=== PATIENT | male | born 1965 | race Caucasian/White ===

== ENCOUNTER → 2020-09-26 | Outpatient (CLI) | payer OTHER | LOC: CT 15:50 | PROVIDERS: ATTEND Family Medicine | DX: M54.2 Cervicalgia (principal); V89.2XXA Person injured in unspecified motor-vehicle accident, traffic, initial encounter | CPT/HCPCS: 72125 ==

== ENCOUNTER 2020-12-04 12:20 | Inpatient (IN) | payer OTHER ==
[~2020-12-04] VITALS: Ht 177.8 cm; Wt 75.7 kg
[2020-12-04] MEDS ORDERED: SODIUM CHLORIDE 0.9% 1000ML 1,000 ML IV SCH (13:30)
[2020-12-04 13:40] LABS: BASOPHILS # (AUTO) 0.1 (0.0-0.1); BASOPHILS % 0.5 % (0.0-1.0); HEMATOCRIT 38.9 % (38.2-49.6); LYMPHOCYTES # (AUTO) 1.4 (1.0-3.2); LYMPHOCYTES % 14.4 % (18.0-39.1); MEAN CORPUSCULAR HEMOGLOBIN 19.6 pg (28-32); MEAN CORPUSCULAR HGB CONC 30.8 g/dL (31-35); MEAN CORPUSCULAR VOLUME 63.5 fL (81-99); MONOCYTES % 10.3 % (4.4-11.3); NEUTROPHILS # (AUTO) 6.9 (2.1-6.9); NEUTROPHILS % 73.2 % (38.7-80.0); PLATELET COUNT 337 x10e3/uL (140-360); RED BLOOD COUNT 6.13 x10e6/uL (4.3-5.7); RED CELL DISTRIBUTION WIDTH 16.2 % (11.7-14.4)
[2020-12-04 14:00] LABS: ALANINE AMINOTRANSFERASE 146 IU/L (0-55); ALBUMIN 3.9 g/dL (3.5-5.0); ALBUMIN/GLOBULIN RATIO 0.9 (0.8-2.0); ALKALINE PHOSPHATASE 52 IU/L (40-150); ANION GAP 13.5 mmol/L (8-16); BLOOD UREA NITROGEN 19 mg/dL (7-26); BUN/CREATININE RATIO 18 (6-25); CALCIUM 9.4 mg/dL (8.4-10.2); CARBON DIOXIDE 25 mmol/L (22-29); CHLORIDE 99 mmol/L (98-107); CREATININE, SERUM 1.06 mg/dL (0.72-1.25); EST GLOMERULAR FILTRATION RATE > 60 ML/MIN (60-); GLUCOSE 101 mg/dL (74-118); POTASSIUM 4.5 mmol/L (3.5-5.1); SODIUM 133 mmol/L (136-145)
[2020-12-04] MEDS ORDERED: CIPROFLOXACIN500 MG (14:18)
[2020-12-04] MEDS ORDERED: CYCLOBENZAPRINE10 MG (14:18)
[2020-12-04 15:00] VITALS: BP 137/94
[2020-12-04 16:25] VITALS: BP 137/94
[2020-12-04 18:23] LABS: CLARITY,URINE SL CLOUDY (CLEAR); COLOR,URINE BROWN (YELLOW); KETONES,URINE 1+ (NEGATIVE); LEUKOCYTE ESTERASE ,URINE NEGATIVE (NEGATIVE); NITRITE,URINE NEGATIVE (NEGATIVE); PROTEIN,URINE DIPSTICK 1+ (NEGATIVE)
[2020-12-04 18:31] LABS: BACTERIA,URINE RARE /HPF; MUCUS,URINE FEW (RARE); RBC,URINE 0-5 /HPF (0-5); WBC,URINE (MAN) 0-5 /HPF (0-5)
[2020-12-04 18:51] LABS: THYROID STIMULATING HORMONE 0.36 uIU/mL (0.350-4.940)
[2020-12-04] MEDS ORDERED: ACETAMINOPHEN 325 MG TAB PO PRN (19:00)
[2020-12-04] MEDS: SODIUM CHLORIDE 0.9% 1000ML 1,000 ML IV SCH (19:40)
[2020-12-04 20:50] VITALS: BP 137/94
[2020-12-04] MEDS: IBUPROFEN 200 MG TAB PO PRN (21:21)
[2020-12-04 21:35] VITALS: BP 118/78
[2020-12-04] MEDS ORDERED: CEFTRIAXONE SOD 2 GM/100 ML ML IV SCH (23:30)
[2020-12-04] MEDS ORDERED: CEFTRIAXONE SOD 2 GM in SODIUM CHLORIDE 0.9% 100 ML IV SCH (23:30)
[2020-12-04] MEDS: CEFTRIAXONE SOD 1 GM in SODIUM CHLORIDE 0.9% 50ML 50 ML IV SCH (23:42)
[2020-12-05] VITALS (9 sets, daily range): BP systolic 93–121; BP diastolic 70–77
[2020-12-05] MEDS: SODIUM CHLORIDE 0.9% 1000ML 1,000 ML IV SCH ×3 (02:58→20:20)
[2020-12-05 06:15] LABS: BASOPHILS % 0.6 % (0.0-1.0); LYMPHOCYTES # (AUTO) 1.9 (1.0-3.2); LYMPHOCYTES % 28.1 % (18.0-39.1); MEAN CORPUSCULAR HEMOGLOBIN 19.7 pg (28-32); MEAN CORPUSCULAR HGB CONC 31.3 g/dL (31-35); MEAN CORPUSCULAR VOLUME 63.1 fL (81-99); MONOCYTES # (AUTO) 1.1 (0.2-0.8); MONOCYTES % 15.8 % (4.4-11.3); NEUTROPHILS # (AUTO) 3.6 (2.1-6.9); NEUTROPHILS % 53.9 % (38.7-80.0); PLATELET COUNT 249 x10e3/uL (140-360); RED BLOOD COUNT 5.07 x10e6/uL (4.3-5.7); RED CELL DISTRIBUTION WIDTH 15.3 % (11.7-14.4)
[2020-12-05 06:30] LABS: BLOOD UREA NITROGEN 19 mg/dL (7-26); BUN/CREATININE RATIO 20 (6-25); CALCIUM 8.4 mg/dL (8.4-10.2); CARBON DIOXIDE 25 mmol/L (22-29); CHLORIDE 103 mmol/L (98-107); CREATININE, SERUM 0.94 mg/dL (0.72-1.25); EST GLOMERULAR FILTRATION RATE > 60 ML/MIN (60-); GLUCOSE 101 mg/dL (74-118); SODIUM 135 mmol/L (136-145)
[2020-12-05 06:54] LABS: % IRON SATURATION 13 % (15-50); IRON 35 ug/dL (65-175); TOTAL IRON BINDING CAPACITY 279 ug/dL (261-478); TRANSFERRIN 199 mg/dL (174-364)
[2020-12-05 10:25] LABS: BAND NEUTROPHILS % (MANUAL) 2 %; LYMPHOCYTES % (MANUAL) 21 % (19-48); METAMYELOCYTES % (MANUAL) 2 % (0-0); MONOCYTES % (MANUAL) 10 % (3.4-9.0); NEUTROPHILS % (MANUAL) 49 % (40-74)
[2020-12-05 10:26] LABS: ANISOCYTOSIS SLIG; MICROCYTOSIS SLIG; PLATELET ESTIMATE ADEQUATE; PLATELET MORPHOLOGY COMMENT NORMAL; POIKILOCYTOSIS SLIGHT; RBC MORPHOLOGY COMMENT NORMAL
[2020-12-05] MEDS: IBUPROFEN 200 MG TAB PO PRN ×2 (11:00→17:29)
[2020-12-05 19:08] LABS: FREE T4 (FREE THYROXINE) 1.28 ng/dL (0.8-1.8); THYROID STIMULATING HORMONE 0.593 uIU/mL (0.350-4.940)
[2020-12-05] MEDS: CEFTRIAXONE SOD 1 GM in SODIUM CHLORIDE 0.9% 50ML 50 ML IV SCH (23:20)
[2020-12-05] MEDS ORDERED: CYANOCOBALAMIN INJ 1,000 MCG/ML VIAL IM ONE (23:30)
[2020-12-06] VITALS (9 sets, daily range): BP systolic 97–124; BP diastolic 64–78
[2020-12-06] MEDS: IBUPROFEN 200 MG TAB PO PRN ×2 (04:20→15:27)
[2020-12-06 06:26] LABS: INR 1.01; PROTHROMBIN TIME 13.9 seconds (11.9-14.5)
[2020-12-06] MEDS: SODIUM CHLORIDE 0.9% 1000ML 1,000 ML IV SCH ×3 (06:26→19:00)
[2020-12-06] MEDS: CYANOCOBALAMIN INJ 1,000 MCG/ML VIAL IM SCH (09:07)
[2020-12-06] MEDS: IRON SUCROSE 100 MG in SODIUM CHLORIDE 0.9% 100 ML 100 ML IV SCH (09:37)
[2020-12-06] MEDS ORDERED: DIATRIZOATE MEGL/DIATRIZOA SOD 30 ML BTL PO ONE (19:43)
[2020-12-06] MEDS ORDERED: SODIUM CHLORIDE 0.9% 50ML 50 ML ONE (21:01)
[2020-12-06] MEDS ORDERED: IOPAMIDOL 370 MG/ML 200 ML INFUS..BTL INJ ONE (21:01)
[2020-12-07] VITALS (9 sets, daily range): BP systolic 100–120; BP diastolic 67–75
[2020-12-07] MEDS: CEFTRIAXONE SOD 1 GM in SODIUM CHLORIDE 0.9% 50ML 50 ML IV SCH ×2 (00:02→22:54)
[2020-12-07] MEDS: SODIUM CHLORIDE 0.9% 1000ML 1,000 ML IV SCH ×3 (03:54→18:24)
[2020-12-07] MEDS: IBUPROFEN 200 MG TAB PO PRN ×3 (03:55→21:32)
[2020-12-07] MEDS: IRON SUCROSE 100 MG in SODIUM CHLORIDE 0.9% 100 ML 100 ML IV SCH (09:51)
[2020-12-07] MEDS: CYANOCOBALAMIN INJ 1,000 MCG/ML VIAL IM SCH (09:51)
[2020-12-08] VITALS (10 sets, daily range): BP systolic 101–128; BP diastolic 63–85
[2020-12-08] MEDS: SODIUM CHLORIDE 0.9% 1000ML 1,000 ML IV SCH ×3 (03:10→22:41)
[2020-12-08 06:25] LABS: BASOPHILS % 0.6 % (0.0-1.0); HEMATOCRIT 31.2 % (38.2-49.6); HEMOGLOBIN 9.8 g/dL (14.0-18.0); LYMPHOCYTES # (AUTO) 1.6 (1.0-3.2); LYMPHOCYTES % 33.9 % (18.0-39.1); MEAN CORPUSCULAR HGB CONC 31.4 g/dL (31-35); MEAN CORPUSCULAR VOLUME 63.5 fL (81-99); MONOCYTES # (AUTO) 0.5 (0.2-0.8); MONOCYTES % 10.3 % (4.4-11.3); NEUTROPHILS # (AUTO) 2.6 (2.1-6.9); NEUTROPHILS % 54.6 % (38.7-80.0); PLATELET COUNT 251 x10e3/uL (140-360); RED BLOOD COUNT 4.91 x10e6/uL (4.3-5.7); RED CELL DISTRIBUTION WIDTH 15.4 % (11.7-14.4)
[2020-12-08 06:53] LABS: ALANINE AMINOTRANSFERASE 135 IU/L (0-55); ALBUMIN 3.1 g/dL (3.5-5.0); ALBUMIN/GLOBULIN RATIO 0.8 (0.8-2.0); ALKALINE PHOSPHATASE 41 IU/L (40-150); BLOOD UREA NITROGEN 7 mg/dL (7-26); BUN/CREATININE RATIO 10 (6-25); CALCIUM 8.7 mg/dL (8.4-10.2); CARBON DIOXIDE 25 mmol/L (22-29); CHLORIDE 104 mmol/L (98-107); CREATININE, SERUM 0.72 mg/dL (0.72-1.25); EST GLOMERULAR FILTRATION RATE > 60 ML/MIN (60-); GLUCOSE 96 mg/dL (74-118); SODIUM 137 mmol/L (136-145)
[2020-12-08 08:05] LABS: HIV 1&2 AB SCREEN NON-REACTIVE (NONREACTIVE)
[2020-12-08] MEDS: PREDNISONE 20 MG TAB PO SCH (08:22)
[2020-12-08] MEDS: IBUPROFEN 200 MG TAB PO PRN (08:23)
[2020-12-08] MEDS: CYANOCOBALAMIN INJ 1,000 MCG/ML VIAL IM SCH (08:27)
[2020-12-08 08:57] LABS: LYMPHOCYTES % (MANUAL) 31 % (19-48); MONOCYTES % (MANUAL) 8 % (3.4-9.0); NEUTROPHILS % (MANUAL) 61 % (40-74)
[2020-12-08] MEDS: IRON SUCROSE 100 MG in SODIUM CHLORIDE 0.9% 100 ML 100 ML IV SCH (09:37)
[2020-12-08] MEDS: CEFTRIAXONE SOD 1 GM in SODIUM CHLORIDE 0.9% 50ML 50 ML IV SCH (23:17)
[2020-12-09] VITALS (8 sets, daily range): BP systolic 100–119; BP diastolic 69–79
[2020-12-09 05:28] LABS: BASOPHILS % 0.6 % (0.0-1.0); HEMATOCRIT 26.6 % (38.2-49.6); HEMOGLOBIN 8.3 g/dL (14.0-18.0); LYMPHOCYTES # (AUTO) 2.3 (1.0-3.2); LYMPHOCYTES % 46.1 % (18.0-39.1); MEAN CORPUSCULAR HEMOGLOBIN 19.8 pg (28-32); MEAN CORPUSCULAR HGB CONC 31.2 g/dL (31-35); MEAN CORPUSCULAR VOLUME 63.5 fL (81-99); MONOCYTES # (AUTO) 0.6 (0.2-0.8); MONOCYTES % 11.4 % (4.4-11.3); NEUTROPHILS % 41.1 % (38.7-80.0); PLATELET COUNT 191 x10e3/uL (140-360); RED BLOOD COUNT 4.19 x10e6/uL (4.3-5.7); RED CELL DISTRIBUTION WIDTH 15.3 % (11.7-14.4)
[2020-12-09 08:05] LABS: BAND NEUTROPHILS % (MANUAL) 1 %; EOSINOPHILS % (MANUAL) 1 % (0-7); LYMPHOCYTES % (MANUAL) 34 % (19-48); MONOCYTES % (MANUAL) 7 % (3.4-9.0); NEUTROPHILS % (MANUAL) 57 % (40-74)
[2020-12-09 08:06] LABS: ANISOCYTOSIS SLIGHT; MICROCYTOSIS SLIGHT
[2020-12-09 08:07] LABS: HYPOCHROMASIA SLIGHT; OVALOCYTES FEW; PLATELET ESTIMATE ADEQUATE; PLATELET MORPHOLOGY COMMENT NORMAL; POLYCHROMASIA FEW; RBC MORPHOLOGY COMMENT ABNORMAL
[2020-12-09] MEDS: CYANOCOBALAMIN INJ 1,000 MCG/ML VIAL IM SCH (09:42)
[2020-12-09] MEDS: IRON SUCROSE 100 MG in SODIUM CHLORIDE 0.9% 100 ML 100 ML IV SCH (10:08)
[2020-12-09] MEDS: PREDNISONE 20 MG TAB PO SCH (10:08)
[2020-12-09] MEDS: SODIUM CHLORIDE 0.9% 1000ML 1,000 ML IV SCH ×3 (11:00→20:30)
[2020-12-09] MEDS: CEFTRIAXONE SOD 1 GM in SODIUM CHLORIDE 0.9% 50ML 50 ML IV SCH (23:44)
[2020-12-10] VITALS (8 sets, daily range): BP systolic 12–119; BP diastolic 70–79
[2020-12-10] MEDS: SODIUM CHLORIDE 0.9% 1000ML 1,000 ML IV SCH ×3 (04:33→19:22)
[2020-12-10] MEDS: PREDNISONE 20 MG TAB PO SCH (08:35)
[2020-12-10] MEDS: IRON SUCROSE 100 MG in SODIUM CHLORIDE 0.9% 100 ML 100 ML IV SCH (08:43)
[2020-12-10] MEDS: CYANOCOBALAMIN INJ 1,000 MCG/ML VIAL IM SCH (08:43)
[2020-12-11] MEDS: CEFTRIAXONE SOD 1 GM in SODIUM CHLORIDE 0.9% 50ML 50 ML IV SCH (00:21)
[2020-12-11 01:21] VITALS: BP 111/78
[2020-12-11] MEDS: SODIUM CHLORIDE 0.9% 1000ML 1,000 ML IV SCH ×2 (03:00→12:06)
[2020-12-11 05:28] VITALS: BP 104/73
[2020-12-11 05:36] LABS: BASOPHILS % 0.7 % (0.0-1.0); HEMATOCRIT 27.3 % (38.2-49.6); HEMOGLOBIN 8.5 g/dL (14.0-18.0); LYMPHOCYTES # (AUTO) 3.2 (1.0-3.2); MEAN CORPUSCULAR HEMOGLOBIN 19.8 pg (28-32); MEAN CORPUSCULAR HGB CONC 31.1 g/dL (31-35); MEAN CORPUSCULAR VOLUME 63.6 fL (81-99); MONOCYTES # (AUTO) 0.6 (0.2-0.8); MONOCYTES % 11.4 % (4.4-11.3); NEUTROPHILS # (AUTO) 1.6 (2.1-6.9); NEUTROPHILS % 28.1 % (38.7-80.0); PLATELET COUNT 233 x10e3/uL (140-360); RED BLOOD COUNT 4.29 x10e6/uL (4.3-5.7); RED CELL DISTRIBUTION WIDTH 15.7 % (11.7-14.4)
[2020-12-11 06:42] LABS: EOSINOPHILS % (MANUAL) 1 % (0-7); LYMPHOCYTES % (MANUAL) 45 % (19-48); MONOCYTES % (MANUAL) 9 % (3.4-9.0); NEUTROPHILS % (MANUAL) 43 % (40-74)
[2020-12-11 06:43] LABS: ANISOCYTOSIS SLIGHT; OVALOCYTES FEW; PLATELET ESTIMATE ADEQUATE; PLATELET MORPHOLOGY COMMENT NORMAL; TEAR DROP CELLS FEW
[2020-12-11 06:44] LABS: ELLIPTOCYTE, RBC SLIGHT; MICROCYTOSIS SLIGHT
[2020-12-11 06:45] LABS: RBC MORPHOLOGY COMMENT ABNORMAL
[2020-12-11 08:29] VITALS: BP 100/71
[2020-12-11] MEDS: PREDNISONE 20 MG TAB PO SCH (09:04)
[2020-12-11] MEDS: CYANOCOBALAMIN INJ 1,000 MCG/ML VIAL IM SCH (09:25)
[2020-12-11 09:31] VITALS: BP 100/71
[2020-12-11 11:27] VITALS: BP 110/71
== END 2020-12-11 15:44 | disposition home or self-care (01) | DRG 445 ==
LOC: ER 12:59 → ERHOLD 13:45 → MED/SURG3 15:00 → OBSVTOIN 12-05 15:44
DX: K81.1 Chronic cholecystitis (principal); B19.10 Unspecified viral hepatitis B without hepatic coma; R50.9 Fever, unspecified; K82.8 Other specified diseases of gallbladder; B19.20 Unspecified viral hepatitis C without hepatic coma; K74.60 Unspecified cirrhosis of liver; E03.9 Hypothyroidism, unspecified; D64.9 Anemia, unspecified; K27.9 Peptic ulcer, site unspecified, unspecified as acute or chronic, without hemorrhage or perforation; E53.8 Deficiency of other specified B group vitamins; R16.1 Splenomegaly, not elsewhere classified; E88.89 Other specified metabolic disorders; Z20.822 Contact with and (suspected) exposure to COVID-19
CPT/HCPCS: 36415; 71045; 71260; 74177; 76705; 78227; 80048; 80053; 81001; 82607; 82728; 82746; 83540; 83605; 83615; 84165; 84436; 84439; 84443; 84466; 84479; 84481; 85025; 85045; 85379; 85610; 85651; 86039; 86140; 86160; 86162; 86376; 86431; 87040; 87086; 87390; 87521; 88184; 93306; 99284; A9537; G0378; G0433; G0435; J0696; J1756; J3420; J7030; J7050; J7512; Q9967; U0002